=== PATIENT | male | born 1970 | race Two or more races ===

== ENCOUNTER 2022-12-08 15:14 | Emergency (ER) | payer MEDICAID, OTHER ==
[~2022-12-08] VITALS: Ht 170.2 cm; Wt 67.8 kg
[2022-12-08 21:31] VITALS: BP 141/73; PULSE 92; RESP 16; TEMP 98.4; O2SAT 99
== END 2022-12-08 23:30 | disposition home or self-care (01) ==
LOC: ER 15:14
DX: Z00.00 Encounter for general adult medical examination without abnormal findings (principal)
CPT/HCPCS: 71045; 71046